=== PATIENT | female | born 1975 | race Caucasian/White ===

== ENCOUNTER 2016-10-02 01:25 | Emergency (ER) | payer MEDICAID ==
[~2016-10-02] VITALS: Ht 170.2 cm; Wt 68.0 kg
[2016-10-02 01:32] VITALS: BP 126/82
[2016-10-02] MEDS ORDERED: ACETAMINOPHEN ES 500 MG TABLET ONE (02:06)
[2016-10-02] MEDS ORDERED: ACETAMINOPHEN 325 MG TABLET PO ONE (02:30)
== END 2016-10-02 04:41 | disposition home or self-care (01) ==
LOC: ER 01:25
DX: S92.532A Displaced fracture of distal phalanx of left lesser toe(s), initial encounter for closed fracture (principal); W22.8XXA Striking against or struck by other objects, initial encounter; Y93.89 Activity, other specified; Y92.89 Other specified places as the place of occurrence of the external cause; Y99.9 Unspecified external cause status
CPT/HCPCS: 73630; 99284; A4606; Z7610

== ENCOUNTER 2025-04-25 01:50 | Emergency (ER) | payer MEDICAID, OTHER | END 2025-04-25 03:38 | disposition left against medical advice (07) | LOC: ER 01:52 | DX: R21 Rash and other nonspecific skin eruption (principal); Z53.21 Procedure and treatment not carried out due to patient leaving prior to being seen by health care provider ==